=== PATIENT | female | born 1970 | race Caucasian/White ===

== ENCOUNTER 2019-07-12 00:49 | Inpatient (IN) | payer OTHER, MEDICAID ==
[~2019-07-12] VITALS: Ht 152.4 cm; Wt 72.6 kg
[2019-07-12 00:55] VITALS: BP_SYST 120
--- NOTE | 2019-07-12 00:58 | NUR ---
Placed in room 2 . Placed on supervisor particleboard, blood pressure machine and pulse oximeter. To gown for exam. Side rails up. Report given to Yanelis GARCIA.
--- NOTE | 2019-07-12 01:02 | NUR ---
Patient brought BLS from [facility], Patient of Dr. Barron for evaluation of hypotension and fever. Patient is hypertensive in ED at 156/89 and tachycardic at 119. Patient arrives with Gtube, Trach and PICC line to the Right AC. Patient is non verbal AAO x1. No other complaints/injuries per patient or as noted. Will continue to monitor
[2019-07-12] MEDS ORDERED: ASCO500T20 GT (01:12)
[2019-07-12] MEDS ORDERED: [UNRECOGNIZED DRUG - OTHER] GT (01:12)
[2019-07-12] MEDS ORDERED: DOCU-144 GT (01:12)
[2019-07-12] MEDS ORDERED: ACET-2165 GT (01:12)
[2019-07-12] MEDS ORDERED: LANS30CA53 GT (01:12)
[2019-07-12] MEDS ORDERED: BISA10SU61 RC (01:12)
[2019-07-12] MEDS ORDERED: ZOLP5TAB2 GT (01:12)
[2019-07-12] MEDS ORDERED: AMLO2.5T2 GT (01:14)
[2019-07-12] MEDS ORDERED: NS 500 ML IV ONE (01:15)
--- NOTE | 2019-07-12 01:15 | NUR ---
Medication reconciliation completed with information provided by Ashli Juarez. Any prior medication reconciliation on file was reviewed and corrected.
--- NOTE | 2019-07-12 01:30 | NUR ---
Phleb at bedside for blood draw
--- NOTE | 2019-07-12 01:59 | NUR ---
Radiology at bedside for chest xray
--- NOTE | 2019-07-12 02:01 | NUR ---
Verbal order received from Dr. Sherwood to use PICC line. PICC line dressing changed using sterile technique. Patient tolerated well.
--- NOTE | 2019-07-12 02:14 | NUR ---
Patient's code status is full code paperwork completed and placed in chart.
[2019-07-12 02:25] LABS: CALCIUM 9.2 mg/dL (8.4-11.0); CREATININE 0.72 mg/dL (0.55-1.30); POTASSIUM 4.4 mmol/L (3.5-5.1)
[2019-07-12 02:28] LABS: BASOPHILS # (AUTO) 0.1 K/uL (0.0-0.2); BASOPHILS % (AUTO) 0.6 % (0.0-2.0); EOSINOPHILS # (AUTO) 0.1 K/uL (0.0-0.4); EOSINOPHILS % (AUTO) 0.7 % (0.0-4.0); HEMATOCRIT 32.3 % (36-48); HEMOGLOBIN 10.4 g/dL (12.0-16.0); LYMPHOCYTES # (AUTO) 2.8 K/uL (1.0-5.5); LYMPHOCYTES % (AUTO) 14.7 % (20.5-51.5); MEAN CORPUSCULAR HEMOGLOBIN 31 pg (27-31); MEAN CORPUSCULAR HGB CONC 32 % (32-36); MEAN CORPUSCULAR VOLUME 96 fL (79.0-98.0); MONOCYTES # (AUTO) 2.1 K/uL (0.0-1.0); MONOCYTES % (AUTO) 10.9 % (1.7-9.3); NEUTROPHILS # (AUTO) 13.8 K/uL (1.8-7.7); NEUTROPHILS % (AUTO) 73.1 % (40.0-70.0); PLATELET COUNT (AUTO) 372 K/uL (130-430); RED BLOOD CELL COUNT(AUTO) 3.38 MIL/uL (4.2-6.2); RED CELL DISTRIBUTION WIDTH 16.4 % (9.0-15.0); WHITE BLOOD COUNT (AUTO) 18.8 K/uL (4.8-10.8)
[2019-07-12 02:29] LABS: ALBUMIN 2.5 g/dL (3.4-4.8); TOTAL BILIRUBIN 0.2 mg/dL (0.0-1.0)
[2019-07-12 02:31] LABS: INR 0.9 (0.8-1.2); PROTHROMBIN TIME 9.3 SECS (9.5-12.5)
--- NOTE | 2019-07-12 02:40 | NUR ---
# 16 FR Quintana catheter with use of sterile technique. Immediate return of 50 cc cloudy yellow urine noted. Bedside drainage bag placed below level of bladder. Urine sample collected and sent to lab. Pt tolerated procedure well Patient arrived with quintana in place, changed due to standard of practice prior to admission. Patient unable to toilet self.
[2019-07-12] MEDS ORDERED: LEVOFLOXACIN 500 MG/D5W 100 ML IV ONE (03:00)
[2019-07-12] MEDS ORDERED: NACL 0.9% 2,000 ML IV ONE (03:00)
--- NOTE | 2019-07-12 03:09 | NUR ---
Report given to RADHA Vale for continuation of care.
[2019-07-12 04:34] LABS: BILIRUBIN,URINE NEGATIVE (NEGATIVE); BLOOD, URINE 3+ (NEGATIVE); CLARITY/URINE TURBID (CLEAR); COLOR,URINE YELLOW (YELLOW); GLUCOSE,URINE NEGATIVE (NEGATIVE); KETONES,URINE TRACE (NEGATIVE); LEUKOCYTE ESTERASE ,URINE 2+ (NEGATIVE); NITRITE, URINE NEGATIVE (NEGATIVE); PH,URINE 6.5 (5.0-8.0); PROTEIN URINE 2+ (NEGATIVE); UROBILINOGEN,URINE 0.2 (0.2-1.0)
[2019-07-12 05:09] LABS: BACTERIA,URINE MODERATE /HPF (None Seen); RBC,URINE 50-80 /HPF (0-3); WBC,URINE 20-50 /HPF (0-3)
[2019-07-12] MEDS ORDERED: 0.45% NS 250 ML IV ONE (05:15)
--- NOTE | 2019-07-12 08:10 | NUR ---
WOUND open skin at paul buttocks with purple color around noted.
--- NOTE | 2019-07-12 08:20 | NUR ---
Patient will be admitted to care of Dr Barron. Admitted to telemetry unit. Will go to room 124a. Belongings list completed. Complete and up to date summary report printed. SBAR report to be given at bedside with opportunity for questions. bedside report given to Hayley Cabezas. patient stable condition. Addendum: 07/12/19 at 0907 by SDNURMG right time 0850.
--- NOTE | 2019-07-12 08:38 | NUR ---
ADMIT NOTE Received pt from ER to the floor with a diagnosis of sepsis uti. Admission process initiated. patient oriented to pain management, safety and call light-teach back done.
[2019-07-12 08:40] VITALS: BP_SYST 146
[2019-07-12 08:55] LABS: BASOPHILS # (AUTO) 0.1 K/uL (0.0-0.2); BASOPHILS % (AUTO) 0.7 % (0.0-2.0); EOSINOPHILS # (AUTO) 0.1 K/uL (0.0-0.4); EOSINOPHILS % (AUTO) 0.8 % (0.0-4.0); HEMATOCRIT 30.5 % (36-48); HEMOGLOBIN 9.8 g/dL (12.0-16.0); LYMPHOCYTES # (AUTO) 2.6 K/uL (1.0-5.5); LYMPHOCYTES % (AUTO) 14.6 % (20.5-51.5); MEAN CORPUSCULAR HEMOGLOBIN 31 pg (27-31); MEAN CORPUSCULAR HGB CONC 32 % (32-36); MEAN CORPUSCULAR VOLUME 96 fL (79.0-98.0); MONOCYTES # (AUTO) 1.8 K/uL (0.0-1.0); PLATELET COUNT (AUTO) 354 K/uL (130-430); RED BLOOD CELL COUNT(AUTO) 3.17 MIL/uL (4.2-6.2); RED CELL DISTRIBUTION WIDTH 16.9 % (9.0-15.0); WHITE BLOOD COUNT (AUTO) 17.6 K/uL (4.8-10.8)
--- NOTE | 2019-07-12 08:57 | NUR ---
ID consult called: for Kalyan Arteaga, regarding sepsis/uti, ordered by Dr. Barron, spoke with Yvonne. face sheet faxed to office at [phone]
[2019-07-12 08:58] LABS: CALCIUM 8.9 mg/dL (8.4-11.0); CREATININE 0.68 mg/dL (0.55-1.30); POTASSIUM 4.7 mmol/L (3.5-5.1)
[2019-07-12] MEDS: LEVOFLOXACIN 500 MG/D5W 100 ML IV SCH (09:09)
--- NOTE | 2019-07-12 09:20 | NUR ---
Pulmo consult: Dr. Duncan on unit and aware of consult.
[2019-07-12 11:04] LABS: NEUTROPHILS % (AUTO) 73.9 % (40.0-70.0)
--- NOTE | 2019-07-12 12:10 | NUR ---
PCP CALL: Paged Dr. Barron thru his office number to verify Admission order.
[2019-07-12 12:34] VITALS: BP_SYST 105
[2019-07-12] MEDS ORDERED: ZOLPIDEM TARTRATE 5 MG TABLET GT PRN (14:00)
[2019-07-12] MEDS ORDERED: BISACODYL 10 MG/SUPPOSITORY RC PRN (14:00)
[2019-07-12] MEDS ORDERED: ACETAMINOPHEN 650 MG/20.3 ML UDC GT PRN (14:00)
--- NOTE | 2019-07-12 14:00 | NUR ---
MD rounds: Seen by Dr. Barron, orders noted.
[2019-07-12] MEDS ORDERED: IPRATROPIUM/ALBUTEROL SULFATE 3 ML AMPUL.NEB (DUONEB) INH PRN (14:45)
--- NOTE | 2019-07-12 14:50 | NUR ---
GI consult called: for Dr. Atkins, regarding gt leaking, ordered by Dr. Barron, spoke with Kaylynn.
[2019-07-12] MEDS: NACL 0.9% 1,000 ML IV SCH (15:21)
[2019-07-12 16:13] VITALS: BP_SYST 110
[2019-07-12] MEDS: IPRATROPIUM/ALBUTEROL SULFATE 3 ML AMPUL.NEB (DUONEB) INH SCH ×3 (16:13→23:20)
--- NOTE | 2019-07-12 16:30 | NUR ---
Wound care consult: Seen by laboratory animal care veterinarian. Wound care recommendations noted.
--- NOTE | 2019-07-12 16:45 | NUR ---
WOUND EVALUATION: Wound Consult received from Dr. Barron. Thank you, Dr. Barron, for the consult. Patient received in a Packwood Bed with an IsoFlex LUISITO mattress with low air-loss therapy initiated, awake, alert, non-verbal, intellectually impaired. Patient is unable to turn in bed independently. Yifan Score is a 10. Past Medical History: Brain tumor in childhood which was removed, Craniotomy, COPD, Seizure disorder, Mental Retardation, Hypertension, GERD, Tracheostomy, G-tube. Recent Labs: WBC 17.6, RBC 3.17, hemoglobin 9.8, hematocrit 30.5, BUN 28, creatinine 0.68, GFR 99, glucose 132, albumin 2.5, PTT 21.8, PT 9.3. Microbiology: Blood culture results 2 in progress. Urine culture results in progress. Endotracheal culture sputum culture results inconclusive (possible contamination with saliva). Intrinsic factors that delay wound healing: COPD, Hypoalbuminemia. Extrinsic factors that delay wound healing: Immobility. Wound Assessment: 1. Right Sacral area: Unstageable pressure ulcer, present on admission. Wound bed has 75% yellow slough, 50% black tissue, 10% pink tissue. No odor, no drainage. Periwound intact. Wound measures 2.7 cm x 1.2 cm. 2. Left Sacral area: Wound of unknown etiology, present on admission. Wound bed has 100% pink tissue. No odor, no drainage. Periwound and surrounding tissue has purple discoloration. Site measures 0.2 cm x 0.4 cm. Recommend: Cleanse wounds with normal saline. Apply moisture barrier cream to david-wounds. Cover with Sacral foam dressing. Perform wound care daily, and as needed for dressing soiling or dislodgement. 3. Left Upper Pelvic area: Scab, present on admission. Wound bed has 100% brown scab. No odor, no drainage. Periwound intact. Scab measures 1.5 cm x 1.5 cm. Recommend: Cleanse site with normal saline. Pat dry. Apply moisture barrier cream to site. Perform wound care daily, and as needed for dressing soiling or dislodgement. Also recommend: Reposition patient side to side only every 2 hours with pillow support and off-load pressure areas with pillows for pressure re-distribution. Offload, elevate and float bilateral heels with one pillow lengthwise under each extremity at all times. Perform skin care and monitor skin integrity Q shift. Use moisture barrier cream on buttocks and other moisture susceptible areas QID and as needed for soiling. Maintain patient on low air-loss therapy. Addendum: 07/12/19 at 1849 by Brando Martin RN Addendum: Treatment for wounds 1 and 2 should have Venelex ointment applied daily.
--- NOTE | 2019-07-12 19:26 | NUR ---
End of shift: Needs attended. No change in assessment.
[2019-07-12 20:00] VITALS: BP_SYST 119
--- NOTE | 2019-07-12 20:00 | NUR ---
ASSUMED CARE. RECEIVED AWAKE, LETHARGIC. AFEBRILE, NOT IN ACUTE DISTRESS. NO PAIN OR DISCOMFORT NOTED. WITH IV FLUID NS INFUSING AT 50 ML/HR VIA RIGHT UPPER ARM PICC LINE. UHW5=856% ON 3 LPM HUMIDIFIED O2 VIA T-BAR. WHITTEN CATHETER DRAINING CLEAR YELLOW URINE. G-TUBE CLAMPED. NO FEEDING ORDERED AT THIS TIME. SINUS TACHYCARDIA AT LOW 100'S ON THE MONITOR. VS ARE OTHERWISE STABLE, WILL CONTINUE TO MONITOR. NEEDS ATTENDED.
--- NOTE | 2019-07-12 21:00 | NUR ---
NO DUE MEDICATIONS AT THIS TIME.
--- NOTE | 2019-07-13 | NUR ---
ASLEEP, NOT IN ANY KIND OF DISTRESS. NO PAIN OR DISCOMFORT NOTED. SIDE RAILS UP, CALL LIGHT WITHIN REACH. KEPT WARM AND COMFORTABLE. VS REMAIN STABLE.
[2019-07-13 00:59] VITALS: BP_SYST 122
[2019-07-13] MEDS: IPRATROPIUM/ALBUTEROL SULFATE 3 ML AMPUL.NEB (DUONEB) INH SCH ×6 (03:57→23:51)
--- NOTE | 2019-07-13 04:00 | NUR ---
AWAKE, NO SIGNIFICANT CHANGE PT. REMAIN STABLE AND PAIN FREE. WILL CONTINUE TO MONITOR.
[2019-07-13 06:48] LABS: CALCIUM 8.1 mg/dL (8.4-11.0); CREATININE 0.6 mg/dL (0.55-1.30); POTASSIUM 4.2 mmol/L (3.5-5.1)
[2019-07-13 06:55] LABS: BASOPHILS # (AUTO) 0.1 K/uL (0.0-0.2); BASOPHILS % (AUTO) 0.6 % (0.0-2.0); EOSINOPHILS # (AUTO) 0.2 K/uL (0.0-0.4); EOSINOPHILS % (AUTO) 1.6 % (0.0-4.0); HEMATOCRIT 27.7 % (36-48); HEMOGLOBIN 9.2 g/dL (12.0-16.0); LYMPHOCYTES # (AUTO) 2.4 K/uL (1.0-5.5); LYMPHOCYTES % (AUTO) 24.1 % (20.5-51.5); MEAN CORPUSCULAR HEMOGLOBIN 32 pg (27-31); MEAN CORPUSCULAR HGB CONC 33 % (32-36); MEAN CORPUSCULAR VOLUME 96 fL (79.0-98.0); MONOCYTES # (AUTO) 1.2 K/uL (0.0-1.0); MONOCYTES % (AUTO) 11.9 % (1.7-9.3); NEUTROPHILS # (AUTO) 6.2 K/uL (1.8-7.7); NEUTROPHILS % (AUTO) 61.8 % (40.0-70.0); PLATELET COUNT (AUTO) 317 K/uL (130-430); RED BLOOD CELL COUNT(AUTO) 2.89 MIL/uL (4.2-6.2); RED CELL DISTRIBUTION WIDTH 16.8 % (9.0-15.0)
--- NOTE | 2019-07-13 07:25 | NUR ---
ENDORSED CARE TO GUADALUPE HAWKINS
--- NOTE | 2019-07-13 07:30 | NUR ---
Opening note Patient resting in bed at this time, A/Ox1, awake, nonverbal. no complaints of pain. PICC line patent, intact, and infusing fluids as ordered. no adverse side effects noted. GT feeding clamped S/T leakage. Bach catheter in place draining yellow urine to gravity. On safety and aspiration precautions, HOB kept elevated, 3 side rails up, call light within reach. patient in stable condition. Will continue to monitor.
[2019-07-13 08:00] VITALS: BP_SYST 134
[2019-07-13] MEDS: LEVOFLOXACIN 500 MG/D5W 100 ML IV SCH (08:44)
[2019-07-13] MEDS: NACL 0.9% 1,000 ML IV SCH (08:48)
[2019-07-13] MEDS: ASCORBIC ACID 500 MG TABLET GT SCH (09:00)
[2019-07-13] MEDS: DOCUSATE SODIUM 100 MG CAPSULE PO SCH ×2 (09:00→20:22)
[2019-07-13] MEDS: BALSAM PERU/CASTOR OIL 60 GM OINT...G. TP SCH (09:00)
[2019-07-13] MEDS: LANSOPRAZOLE 30 MG CAPSULE.DR GT SCH (09:00)
[2019-07-13] MEDS: amLODIPine BESYLATE 5 MG TABLET GT SCH (09:00)
--- NOTE | 2019-07-13 09:00 | NUR ---
GT insertion GT inserted by Dr. Badillo at bedside. GT dressing applied. patient okay to use GT for medication and feeding once GT placement is confirmed.
--- NOTE | 2019-07-13 09:30 | NUR ---
Unable to give morning medications Awaiting KUB result. To not use GTube per MD until placement is confirmed.
--- NOTE | 2019-07-13 10:28 | NUR ---
Nutrition Update Yifan Scale 9 noted. Pt admitted for sepsis, UTI. Diet: N/A BMI: 31.2 kg/m2 RD to follow per nutrition care standards.
--- NOTE | 2019-07-13 10:51 | NUR ---
Wound care Wound care dome as ordered. no adverse side effects noted.
[2019-07-13] MEDS ORDERED: GASTROGRAFIN 120 ML ONE (11:11)
--- NOTE | 2019-07-13 11:22 | NUR ---
Dietitian Recommendations * Recommend Pivot 1.5 at 10 ml/hr today (07/13/19), and advance to goal rate of 45 ml/hr tomorrow (07/14/19) if pt is tolerating TF well via GT * Raman BID * Free Water Flush: 200 ml Q6h Provides: 1780 kcal/day, 106 gm protein/day, and 1620 ml free water/day Meets; 98% of upper end of estimated protein needs and 102% of upper end of estimated protein needs LP, RD Please refer to Nutrition Assessment for details. Addendum: 07/13/19 at [address] Amended: Links added.
--- NOTE | 2019-07-13 12:30 | NUR ---
bowel movement Patient noted with bowel movement, skin care provided. Linens changed. No other needs at this time.
[2019-07-13 12:40] VITALS: BP_SYST 106
--- NOTE | 2019-07-13 14:28 | NUR ---
Gt feeding GT placement confirmed with xray. GT in place, patent, and intact. GT feeding started at 10cc/hour as ordered. Tolerating well. No nausea, no vomiting.
[2019-07-13 16:26] VITALS: BP_SYST 110
--- NOTE | 2019-07-13 16:28 | NUR ---
rounds Oral care provided, trach suctioned. Skin care provided. no other needs at this time.
--- NOTE | 2019-07-13 17:52 | NUR ---
rounds oral care provided. GT flushed as ordered. No other needs at this time.
--- NOTE | 2019-07-13 18:32 | NUR ---
closing note Patient resting in bed at this time, A/Ox1, awake, nonverbal. no complaints of pain. PICC line patent, intact, and infusing fluids as ordered. no adverse side effects noted. Gt feeding in place, patent, and intact. GT feeding tolerating well. No residual. no nausea, no vomiting. Bach catheter in place draining yellow urine to gravity. On safety and aspiration precautions, HOB kept elevated, 3 side rails up, call light within reach. patient in stable condition. All needs met.
--- NOTE | 2019-07-13 19:15 | NUR ---
OPENING NOTES Late entry due to patient care. Bedside report received from dayshift nurse. Patient received lying in bed. No s/s of acute distress noted. Breathing even and unlabored. HOB raised, trach to tbar on 3L of oxygen. Bach attached, secured, and draining by gravity. Bed alarm on. Bed is locked and at lowest position. Will continue to monitor.
[2019-07-13 20:00] VITALS: BP_SYST 123
--- NOTE | 2019-07-13 23:00 | NUR ---
INCONTINENT CARE Incontinent care done by RN at this time. Loose brown stool noted. All needs met. Will continue to monitor.
[2019-07-14] VITALS: BP_SYST 118
--- NOTE | 2019-07-14 04:00 | NUR ---
INCONTINENT CARE Incontinent care done at this time by RN. Loose brown stool noted. All needs met. Bed alarm on. Will continue to monitor.
[2019-07-14] MEDS: IPRATROPIUM/ALBUTEROL SULFATE 3 ML AMPUL.NEB (DUONEB) INH SCH ×6 (04:06→23:24)
[2019-07-14] MEDS: NACL 0.9% 1,000 ML IV SCH ×2 (04:17→21:23)
[2019-07-14 06:26] LABS: BASOPHILS # (AUTO) 0.1 K/uL (0.0-0.2); BASOPHILS % (AUTO) 0.6 % (0.0-2.0); EOSINOPHILS # (AUTO) 0.1 K/uL (0.0-0.4); EOSINOPHILS % (AUTO) 1.6 % (0.0-4.0); HEMOGLOBIN 8.8 g/dL (12.0-16.0); LYMPHOCYTES # (AUTO) 2.7 K/uL (1.0-5.5); LYMPHOCYTES % (AUTO) 29.5 % (20.5-51.5); MEAN CORPUSCULAR HEMOGLOBIN 32 pg (27-31); MEAN CORPUSCULAR HGB CONC 33 % (32-36); MEAN CORPUSCULAR VOLUME 96 fL (79.0-98.0); MONOCYTES # (AUTO) 1.3 K/uL (0.0-1.0); MONOCYTES % (AUTO) 14.4 % (1.7-9.3); NEUTROPHILS # (AUTO) 4.9 K/uL (1.8-7.7); NEUTROPHILS % (AUTO) 53.9 % (40.0-70.0); PLATELET COUNT (AUTO) 367 K/uL (130-430); RED BLOOD CELL COUNT(AUTO) 2.81 MIL/uL (4.2-6.2); WHITE BLOOD COUNT (AUTO) 9.1 K/uL (4.8-10.8)
--- NOTE | 2019-07-14 06:40 | NUR ---
CLOSING NOTES Patient in bed, eyes closed, sleeping comfortably. No s/s of acute distress noted. Breathing even and unlabored. HOB raised, trach to tbar attached, on 3L of oxygen. Bach attached, secured, and draining by gravity. Seizure pads attached to side rails. All needs met throughout shift. Fall and safety precautions maintained throughout shift. Will continue to monitor until patient care is endorsed to oncoming dayshift nurse.
[2019-07-14 07:32] LABS: CALCIUM 8.7 mg/dL (8.4-11.0); CREATININE 0.61 mg/dL (0.55-1.30); POTASSIUM 4.3 mmol/L (3.5-5.1)
--- NOTE | 2019-07-14 07:35 | NUR ---
Opening note Patient resting in bed at this time, A/Ox1, awake, nonverbal. no complaints of pain. PICC line patent, intact, and infusing fluids as ordered. no adverse side effects noted. GT feeding in place, patent, and intact. GT feeding tolerating well. No residual noted. Bach catheter in place draining yellow urine to gravity. On safety and aspiration precautions, HOB kept elevated, 3 side rails up, call light within reach. patient in stable condition. Will continue to monitor.
[2019-07-14 08:00] VITALS: BP_SYST 129
[2019-07-14] MEDS: LANSOPRAZOLE 30 MG CAPSULE.DR GT SCH (08:39)
[2019-07-14] MEDS: ASCORBIC ACID 500 MG TABLET GT SCH (08:40)
[2019-07-14] MEDS: LEVOFLOXACIN 500 MG/D5W 100 ML IV SCH (08:40)
[2019-07-14] MEDS: amLODIPine BESYLATE 5 MG TABLET GT SCH (08:40)
[2019-07-14] MEDS: BALSAM PERU/CASTOR OIL 60 GM OINT...G. TP SCH (08:40)
[2019-07-14] MEDS: DOCUSATE SODIUM 100 MG CAPSULE PO SCH ×2 (08:40→21:00)
--- NOTE | 2019-07-14 09:30 | NUR ---
medications All morning medications given as ordered. No adverse side effects noted. GT feeding tolerated well. No nausea, no vomiting noted. No residual noted.
--- NOTE | 2019-07-14 11:30 | NUR ---
oral care Oral care provided. Skin care provided. GTube flushed as ordered. No adverse side effects noted.
[2019-07-14 12:01] VITALS: BP_SYST 146
--- NOTE | 2019-07-14 13:30 | NUR ---
Dr. Badillo rounds GT feeding increased to 20cc/ hr. stated to follow dietary recommendations. GT feeding increased. tolerating well. No adverse side effects noted.
--- NOTE | 2019-07-14 15:50 | NUR ---
Wound care Wound care done as ordered. no adverse side effects. Skin care provided, linens changed. Patient turned and repositioned. No other needs at this time.
[2019-07-14 17:09] VITALS: BP_SYST 150
--- NOTE | 2019-07-14 17:15 | NUR ---
Gt dressing GT dressing changed, new dressing applied. GT site dry and intact. No other need at this time.
--- NOTE | 2019-07-14 18:08 | NUR ---
closing note Patient resting in bed at this time, A/Ox1, awake, nonverbal. no signs of pain. PICC line patent, intact, and infusing fluids as ordered. no adverse side effects noted. PICC line dressing changed. GT feeding in place, patent, and intact. GT feeding tolerating well. No residual noted. Bach catheter in place draining yellow urine to gravity. On seizure, safety and aspiration precautions, padded side rails in place, HOB kept elevated, 3 side rails up, call light within reach. patient in stable condition. all needs met.
--- NOTE | 2019-07-14 18:34 | NUR ---
critical lab Patient microbiology showed E coli, ESBL of urine. No report called in from lab, noticed result upon reviewing chart at this time. Called MD, new orders received.
--- NOTE | 2019-07-14 19:10 | NUR ---
OPENING NOTE Late entry due to patient care. Bedside report received from daysprft nurse. Patient received lying in bed, sleeping. No s/s of acute distress noted. Breathing is even and unlabored. HOB raised. IVF and Gtube infusing well. Trach to Tbar, on 3L of oxygen. Seizure pads attached to side rails. Bach attached, secured and draining by gravity. Bed alarm on. Bed is locked and at lowest position. Will continue to monitor.
[2019-07-14 20:00] VITALS: BP_SYST 142
[2019-07-14] MEDS ORDERED: MEROPENEM 500 MG VIAL IV ONE (21:12)
[2019-07-14] MEDS: MEROPENEM 500 MG in NS 50 ML IV SCH (21:18)
--- NOTE | 2019-07-14 22:00 | NUR ---
ROUNDS Patient in bed, sleeping comfortably. All needs met at this time. Will continue to monitor.
--- NOTE | 2019-07-15 01:00 | NUR ---
PERICARE Pericare rendered by RN and WARP PICKER. Patient tolerated well. Bed alarm on. Will continue to monitor.
[2019-07-15 01:24] VITALS: BP_SYST 132
[2019-07-15] MEDS: IPRATROPIUM/ALBUTEROL SULFATE 3 ML AMPUL.NEB (DUONEB) INH SCH ×6 (03:09→23:22)
--- NOTE | 2019-07-15 04:00 | NUR ---
ROUNDS Patient in bed asleep at this time. No signs of discomfort noted. Chest rise and fall even bilaterally. IVF and Gtube infusing well. Bed alarm on. Will continue to monitor.
[2019-07-15] MEDS: MEROPENEM 500 MG in NS 50 ML IV SCH ×3 (05:13→22:31)
--- NOTE | 2019-07-15 06:25 | NUR ---
CLOSING NOTES Patient in bed, eyes closed, sleeping. No s/s of acute distress noted. Breathing even and unlabored, HOB raised, trach to tbar on 3L of oxygen. Gtube and IVF infusing well. IV site patent, no signs of infiltration or infection noted. Bach attached, secured and draining by gravity. Seizure pads attached to side rails. All needs met throughout shift. Fall, safety, isolation precautions maintained throughout shift. Will continue to monitor until patient care is endorsed to oncoming dayshift nurse.
[2019-07-15 07:15] VITALS: BP_SYST 164
--- NOTE | 2019-07-15 07:26 | NUR ---
OPENING NOTES RECEIVED PT AWAKE. NO SIGNS OF DISTRESS NOTED. NO SOB. NONVERBAL. MIDLINE PATENT AND INTACT. FLUIDS INFUSING ORDERED. TOLERATING WELL. G-TUBE IN PLACE, INTACT, AND PATENT. SEEN BY DR. MARIN AT BEDSIDE. HELD FEEDING DUE TO RESIDUAL >100ML. MD AWARE. WHITTEN CATHETER INTACT AND PATENT, DRAINING YELLOW URINE. FALL AND ASPIRATION PRECAUTIONS NOTED. HOB ELEVATED. CALL LIGHT IN REACH. CONTINUE FREQUENT. VISUAL CHECKS. WILL CONTINUE TO MONITOR.
[2019-07-15] MEDS: amLODIPine BESYLATE 5 MG TABLET GT SCH (09:15)
[2019-07-15] MEDS: DOCUSATE SODIUM 100 MG CAPSULE PO SCH ×2 (09:15→22:30)
[2019-07-15] MEDS: ASCORBIC ACID 500 MG TABLET GT SCH (09:15)
[2019-07-15] MEDS: LANSOPRAZOLE 30 MG CAPSULE.DR GT SCH (09:15)
--- NOTE | 2019-07-15 09:15 | NUR ---
MEDS ADMINISTERED MEDICATIONS TO PT ORDERED PER MD. TOLERATED WELL. EDUCATION GIVEN. NO ACUTE DISTRESS NOTED. HOB ELEVATED. CALL LIGHT IN REACH. FALL AND ASPIRATION PRECAUTIONS NOTED. CONTINUE TO MONITOR.
[2019-07-15] MEDS: BALSAM PERU/CASTOR OIL 60 GM OINT...G. TP SCH (09:16)
--- NOTE | 2019-07-15 11:15 | NUR ---
WOUND CARE PERFORMED WOUND CARE ON PATIENT. INCONTINENT CARE PROVIDED. TOLERATED WELL. NO ACUTE DISTRESS NOTED. HOB ELEVATED. CALL LIGHT IN REACH. FALL AND ASPIRATION PRECAUTIONS IN PLACE. CONTINUE TO MONITOR.
[2019-07-15 12:00] VITALS: BP_SYST 150
--- NOTE | 2019-07-15 13:15 | NUR ---
ROUNDS PT RESTING IN BED. CHEST RISE AND FALL NOTED. NO ACUTE DISTRESS NOTED. ALL NEEDS MET. CALL LIGHT IN REACH. FALL AND ASPIRATION PRECAUTIONS IN PLACE. CONTINUE TO MONITOR.
[2019-07-15 14:49] VITALS: BP_SYST 164
--- NOTE | 2019-07-15 15:15 | NUR ---
ROUNDS PATIENT AWAKE IN BED. NO ACUTE DISTRESS NOTED. CALL LIGHT IN REACH. BED ALARM ON. FALL AND ASPIRATION PRECAUTIONS IN PLACE. HOB ELEVATED. ALL NEEDS MET. CONTINUE TO MONITOR.
--- NOTE | 2019-07-15 16:02 | NUR ---
DC PLANNING: CLINICALS HAS BEEN FAXED TO [facility]) @ [facility]
[2019-07-15 17:03] VITALS: BP_SYST 158
--- NOTE | 2019-07-15 17:15 | NUR ---
ROUNDS PT RESTING IN BED. CHEST RISE AND FALL NOTED. NO ACUTE DISTRESS NOTED. CALL LIGHT IN REACH. ALL NEEDS MET. FALL AND ASPIRATION PRECAUTIONS IN PLACE. CONTINUE TO MONITOR.
--- NOTE | 2019-07-15 18:45 | NUR ---
CLOSING NOTE PATIENT IN BED RESTING. CHEST RISE AND FALL NOTED. NO SIGNS OF ACUTE DISTRESS NOTED. TRACH TO TBAR ON 3L OF OXYGEN. BREATHING EVEN AND UNLABORED. HOB ELEVATED. G-TUBE INTACT AND PATENT. TOLERATING FEEDING WELL. IV INTACT AND PATENT. NO SIGNS OF INFILTRATION. WHITTEN CATHETER INTACT AND DRAINING YELLOW URINE. ALL NEEDS MET. FALL AND ASPIRATION PRECAUTIONS NOTED. CALL LIGHT IN REACH. WILL ENDORSE TO NOC NURSE.
--- NOTE | 2019-07-15 19:47 | NUR ---
Pt is lying in bed awake and non-verbal. Tracheostomy is in place and connected to oxygen at 2L/min via T Piece. No respiratory distress noted. G tube feeding of Pivot 1.5 is infusing well at 45ml/hr and no leakage noted. IVF of NS is infusing well via JOSE ANGEL Midline at 50ml/hr and Midline dressing is dry and intact. Bach cath to gravity drainage noted with yellowish urine. Fall, safety and seizure precautions are in place.
[2019-07-15 20:00] VITALS: BP_SYST 144
--- NOTE | 2019-07-15 22:00 | NUR ---
No distress noted at this time. GTF and IVF are infusing well. Fall, seizure and safety precautions are in place.
--- NOTE | 2019-07-16 | NUR ---
IVF and GTF are infusing well. Fall, seizure and safety precautions are in place.
[2019-07-16] MEDS: NACL 0.9% 1,000 ML IV SCH ×2 (00:07→18:19)
--- NOTE | 2019-07-16 02:00 | NUR ---
Pt is resting quietly in bed. No respiratory distress or seizure activity noted. IVF and GTF are infusing well. Fall, seizure and safety precautions are in place.
--- NOTE | 2019-07-16 03:05 | NUR ---
Nursing care of pt endorsed to Nurse Mik Sanchez
--- NOTE | 2019-07-16 03:55 | NUR ---
TURNING & REPOSITION OFF LOADING WITH PILLOWS COMFORT MEASURES IMPLEMENTED HOB KEPT ELEVATED FREQUENT EYE OPENING IS NOTED CHEST MOVEMENT SYMMETRICAL ALSO UNLABORED ASSIST NEEDED /.
[2019-07-16] MEDS: IPRATROPIUM/ALBUTEROL SULFATE 3 ML AMPUL.NEB (DUONEB) INH SCH ×4 (04:28→16:12)
[2019-07-16 06:05] VITALS: BP_SYST 148
[2019-07-16] MEDS: MEROPENEM 500 MG in NS 50 ML IV SCH ×2 (06:48→14:24)
--- NOTE | 2019-07-16 07:15 | NUR ---
PATIENT RESTING IN BED. CHEST RISE AND FALL NOTED. NO ACUTE DISTRESS NOTED. UNLABORED BREATHING. G-TUBE INTACT AND PATENT, RUNNING FEEDING. TOLERATING WELL. IV INTACT AND PATENT. FLUIDS RUNNING. TOLERATING WELL. NO SIGNS OF INFILTRATION. BED ALARM ON. ALL NEEDS MET. CALL LIGHT IN REACH. BED IN LOWEST AND LOCKED POSITION. FALL AND ASPIRATION PRECAUTIONS IN PLACE. CONTINUE TO MONITOR.
[2019-07-16] MEDS: amLODIPine BESYLATE 5 MG TABLET GT SCH (08:22)
[2019-07-16] MEDS: LANSOPRAZOLE 30 MG CAPSULE.DR GT SCH (08:23)
[2019-07-16] MEDS: ASCORBIC ACID 500 MG TABLET GT SCH (08:23)
[2019-07-16] MEDS: DOCUSATE SODIUM 100 MG CAPSULE PO SCH (08:23)
--- NOTE | 2019-07-16 08:23 | NUR ---
MEDS MEDICATIONS ADMINISTERED ORDERED PER MD. TOLERATED WELL. NO ACUTE DISTRESS NOTED. UNLABORED BREATHING. ALL NEEDS MET. CALL LIGHT IN REACH. CONTINUE TO MONITOR.
[2019-07-16] MEDS: BALSAM PERU/CASTOR OIL 60 GM OINT...G. TP SCH (08:24)
--- NOTE | 2019-07-16 10:00 | NUR ---
ROUNDS PT AWAKE IN BED. NO ACUTE DISTRESS NOTED. CALL LIGHT IN REACH. ALL NEEDS MET. FALL AND ASPIRATION PRECAUTIONS IN PLACE. HOB ELEVATED. CONTINUE TO MONITOR.
--- NOTE | 2019-07-16 10:53 | NUR ---
DC PLANNING: MADHURI SPOKE WITH FLORENCIO ( CLINICAL LIAISON AT [facility] ) @ PATIENT IS ACCEPTED AT [place], [place]. MADHURI SPOKE WITH PATIENT'S MOTHER (RADHA) @ AND INFORMED HER OF THE DC PLAN TO [facility]. PATIENT'S MOTHER AGREED TO THE DC PLAN TO [facility]. Addendum: 07/16/19 at 0212 by Viktoria Hagan RN RECEIVED CALL FROM FLORENCIO, PATIENT WILL BE GOING TO ROOM 208-A AT [facility] AFTER 7PM. CALL FOR REPORT P Addendum: 07/16/19 at 1216 by Viktoria Hagan RN TRANSPORTATION HAS BEEN SETUP WITH [facility] (WITH VENT CERTIFIED RN). RADIOLOGY SUPERVISOR TIME IS AT 8PM. CM CONTACTED PATIENT'S MOTHER (RADHA) AND INFORMED OF THE DC TONIGHT AT 8PM. PATIENT'S MOTHER AGREED TO THE DISCHARGE TO [facility]. Addendum: 07/16/19 at 1221 by Viktoria Hagan RN SPOKE WITH SIMIN HerreraDISPTACH) @ [facility] FOR TRANSPORTATION SETUP
--- NOTE | 2019-07-16 11:00 | NUR ---
note ASSISTED COMMERCIAL [employer]EN RET[employer]OFIT ARCHITECT WITH INCONTINENCE CARE, STEPHAN WELL. REPOSITIONED WITH PILLOWS FOR COMFORT. HOB UP. ALL NEEDS ANTICIPATED AND MET. CONT TO MONITOR. CALL LIGHT IN REACH
[2019-07-16 12:30] VITALS: BP_SYST 157
--- NOTE | 2019-07-16 13:00 | NUR ---
ROUNDS PT AWAKE IN BED. NO ACUTE DISTRESS NOTED. UNLABORED BREATHING. CALL LIGHT ON. FALL AND ASPIRATION PRECAUTIONS IN PLACE. HOB ELEVATED. ALL NEEDS MET. CONTINUE TO MONITOR.
--- NOTE | 2019-07-16 15:00 | NUR ---
WOUND CARE PT AWAKE IN BED. NO ACUTE DISTRESS NOTED. WOUND CARE DONE. TOLERATED WELL. ALL NEEDS MET. CALL LIGHT IN REACH. FALL AND ASPIRATION PRECAUTIONS NOTED. HOB ELEVATED. CONTINUE TO MONITOR.
[2019-07-16 15:31] VITALS: BP_SYST 130
--- NOTE | 2019-07-16 16:30 | NUR ---
PERINEAL CARE INCONTINENT CARE PROVIDED. TOLERATED WELL. NO ACUTE DISTRESS NOTED. ALL NEEDS MET. CALL LIGHT IN REACH. FALL AND ASPIRATION PRECAUTIONS IN PLACE. CONTINUE TO MONITOR.
[2019-07-16 16:42] VITALS: BP_SYST 153
--- NOTE | 2019-07-16 17:00 | NUR ---
[employer] CALLED CALLED MOTHER RADHA. RECEIVED CONSENT FOR TRANSFER TO [facility]. SECOND WITNESS
--- NOTE | 2019-07-16 17:33 | NUR ---
CALLED [facility] REPORT GIVEN TO CARLOS, HOME HEALTH REGISTERED NURSE TIME AT 1999.
--- NOTE | 2019-07-16 18:41 | NUR ---
CLOSING NOTE PATIENT RESTING IN BED. CHEST RISE AND FALL NOTED. NO ACUTE DISTRESS NOTED. HOB ELEVATED. G-TUBE INTACT AND PATENT. RUNNING FEEDING ORDERED PER MD. TOLERATING WELL. IV INTACT AND PATENT. NO SIGNS OF INFILTRATION. INFUSING FLUIDS ORDERED TOLERATING WELL. BED IN LOWEST AND LOCKED POSITION. CALL LIGHT IN REACH. ALL NEEDS MET. FALL AND ASPIRATION PRECAUTIONS IN PLACE. [facility] [place]. WILL ENDORSE TO [facility] NURSE.
--- NOTE | 2019-07-16 20:35 | NUR ---
NOTES PATIENT DISCHARGED AND TRANSFERRED TO [facility] ORDERED WITH STABLE VITAL SIGNS. ALL NEEDS ATTENDED TO.
== END 2019-07-16 20:35 | DRG 871 ==
LOC: SED 00:49 → STU 05:15
PROVIDERS: ADMIT Internal Medicine; ATTEND Internal Medicine
PROC: 0D20XUZ Change Feeding Device in Upper Intestinal Tract, External Approach (ICD-10-PCS; principal; 2019-07-13)
DX: A41.9 Sepsis, unspecified organism (principal); R40.2343 Coma scale, best motor response, flexion withdrawal, at hospital admission; E43 Unspecified severe protein-calorie malnutrition; K94.23 Gastrostomy malfunction; K31.6 Fistula of stomach and duodenum; G93.40 Encephalopathy, unspecified; N39.0 Urinary tract infection, site not specified; Z16.12 Extended spectrum beta lactamase (ESBL) resistance; E24.9 Cushing's syndrome, unspecified; J96.11 Chronic respiratory failure with hypoxia; B96.20 Unspecified Escherichia coli [E. coli] as the cause of diseases classified elsewhere; F79 Unspecified intellectual disabilities; E86.0 Dehydration; G40.909 Epilepsy, unspecified, not intractable, without status epilepticus; I10 Essential (primary) hypertension; J44.9 Chronic obstructive pulmonary disease, unspecified; K21.9 Gastro-esophageal reflux disease without esophagitis; R13.12 Dysphagia, oropharyngeal phase; Y83.8 Other surgical procedures as the cause of abnormal reaction of the patient, or of later complication, without mention of misadventure at the time of the procedure; D63.8 Anemia in other chronic diseases classified elsewhere; Z79.52 Long term (current) use of systemic steroids; Z74.01 Bed confinement status; Z68.31 Body mass index [BMI] 31.0-31.9, adult; Z79.899 Other long term (current) drug therapy; Y92.89 Other specified places as the place of occurrence of the external cause; R40.2423 Glasgow coma scale score 9-12, at hospital admission
CPT/HCPCS: 36415; 36600; 71045; 74240-TC; 80048; 80053; 81000-TC; 82803-TC; 83605; 84484; 85025; 85610-TC; 85730-TC; 87040-TC; 87081; 87086; 87186-TC; 87205-TC; 93005; 94640; 94760; 96361; 96365; 99285; G0378; J1956; J2185; J7030; J7040; J7620; Q9963

== ENCOUNTER 2021-03-26 02:10 | Inpatient (IN) | payer OTHER, MEDICAID, SELFPAY ==
[~2021-03-26] VITALS: Ht 157.5 cm; Wt 94.3 kg
[~2021-03-26 02:10] MED LIST: ACET325T GT; AMLO2.5T2 GT; ASCO500T20 GT; BISA10SU61 RC; DOCU-144 GT; LANS30CA53 GT; ZOLP5TAB2 GT; [UNRECOGNIZED DRUG - OTHER] GT
--- NOTE | 2021-03-26 02:16 | NUR ---
Placed in room 6 . Placed on yard spotter, blood pressure machine and pulse oximeter. To gown for exam. Side rails up. Report given to RADHA Quintanilla.
[2021-03-26 02:20] VITALS: BP_SYST 164
--- NOTE | 2021-03-26 02:20 | NUR ---
Patient BIB by [facility] from [facility]. C/O Redness bilateral hips R/O Cellulitis x today. Per reported, staffs found redness bilateral hips and reported Dr. Barron, Patient needed to eval.
--- NOTE | 2021-03-26 02:22 | NUR ---
COVID-19 and MRSA swabs collected and sent to lab.
[2021-03-26] MEDS ORDERED: LACO100T2 GT (02:43)
[2021-03-26] MEDS ORDERED: LANS15CA19 GT (02:43)
[2021-03-26] MEDS ORDERED: FURO-149 GT (02:43)
[2021-03-26] MEDS ORDERED: OXCA600T5 GT (02:43)
[2021-03-26] MEDS ORDERED: MOM GT (02:43)
[2021-03-26] MEDS ORDERED: VALP500S4 GT (02:43)
[2021-03-26] MEDS ORDERED: ASCO500T20 GT (02:43)
[2021-03-26] MEDS ORDERED: DOCU-144 GT (02:43)
[2021-03-26] MEDS ORDERED: LISI-209 GT (02:43)
[2021-03-26] MEDS ORDERED: LIP10 GT (02:43)
[2021-03-26] MEDS ORDERED: LEVE750T4 GT (02:43)
[2021-03-26] MEDS ORDERED: POTA20TA83 GT (02:43)
[2021-03-26] MEDS ORDERED: MULT-1117 GT (02:43)
--- NOTE | 2021-03-26 02:43 | NUR ---
Medication reconciliation completed with information provided by med list from Ashli Juarez. Any prior medication reconciliation on file was reviewed and corrected.
--- NOTE | 2021-03-26 02:55 | NUR ---
ER Dr. Lin at bedside examining patient.
[2021-03-26] MEDS ORDERED: PIPERACILLIN/TAZO 3.375 GM in NS 50 ML IV ONE (03:00)
[2021-03-26] MEDS ORDERED: VANCOMYCIN HCL 1,000 MG in NS 250 ML IV ONE (03:00)
[2021-03-26] MEDS ORDERED: IPRATROPIUM/ALBUTEROL SULFATE 3 ML AMPUL.NEB (DUONEB) INH ONE (03:00)
[2021-03-26] MEDS ORDERED: IPRATROPIUM/ALBUTEROL SULFATE 3 ML AMPUL.NEB (DUONEB) ONE (03:04)
[2021-03-26 03:14] LABS: BASOPHILS # (AUTO) 0.1 K/uL (0.0-0.2); BASOPHILS % (AUTO) 0.5 % (0.0-2.0); EOSINOPHILS % (AUTO) 0.1 % (0.0-4.0); HEMATOCRIT 34.1 % (36-48); HEMOGLOBIN 11.1 g/dL (12.0-16.0); LYMPHOCYTES # (AUTO) 2.1 K/uL (1.0-5.5); LYMPHOCYTES % (AUTO) 10.3 % (20.5-51.5); MEAN CORPUSCULAR HEMOGLOBIN 29 pg (27-31); MEAN CORPUSCULAR HGB CONC 33 % (32-36); MEAN CORPUSCULAR VOLUME 89 fL (79.0-98.0); MONOCYTES # (AUTO) 0.6 K/uL (0.0-1.0); MONOCYTES % (AUTO) 2.7 % (1.7-9.3); NEUTROPHILS # (AUTO) 17.9 K/uL (1.8-7.7); NEUTROPHILS % (AUTO) 86.4 % (40.0-70.0); PLATELET COUNT (AUTO) 323 K/uL (130-430); RED BLOOD CELL COUNT(AUTO) 3.84 MIL/uL (4.2-6.2); RED CELL DISTRIBUTION WIDTH 16.3 % (9.0-15.0); WHITE BLOOD COUNT (AUTO) 20.7 K/uL (4.8-10.8)
[2021-03-26] MEDS ORDERED: ONDANSETRON HCL 4 MG/2 ML VIAL IVP ONE (03:15)
[2021-03-26] MEDS ORDERED: fentaNYL CITRATE/PF 100 MCG/2 ML AMP IVP ONE (03:15)
[2021-03-26 03:18] LABS: ALBUMIN 2.5 g/dL (3.4-4.8); CREATININE 0.94 mg/dL (0.55-1.30); POTASSIUM 4.9 mmol/L (3.5-5.1); TOTAL BILIRUBIN 0.1 mg/dL (0.0-1.0)
--- NOTE | 2021-03-26 03:30 | NUR ---
# 22 gauge angiocath placed to right upper arm. Use of asceptic technique. Opsite placed over site. Blood return noted. Blood for lab drawn from site. Flushed with 10 cc of normal saline. No evidence of infiltration noted. Patient tolerated well.
--- NOTE | 2021-03-26 03:38 | NUR ---
CXR at bedside.
[2021-03-26] MEDS ORDERED: VANCOMYCIN HCL 1000 MG/VIAL IV ONE (03:40)
[2021-03-26] MEDS ORDERED: PIPERACILLIN/TAZOBACTAM 3.375 GM/VIAL (ZOSYN) IV ONE (03:40)
--- NOTE | 2021-03-26 04:01 | NUR ---
Ultrasound at bedside.
[2021-03-26] MEDS ORDERED: NACL 0.9% 1,000 ML IV ONE (04:15)
--- NOTE | 2021-03-26 04:52 | NUR ---
# 16 FR Bach catheter with use of sterile technique. Immediate return of 10 cc yellow, cloudy urine noted. Bedside drainage bag placed below level of bladder. Urine sample collected and sent to lab. Pt tolerated procedure well.
--- NOTE | 2021-03-26 05:07 | NUR ---
Re-position patient and suction.
--- NOTE | 2021-03-26 06:01 | NUR ---
Patient resting quietly. No acute distress noted. Vital signs within normal range.
--- NOTE | 2021-03-26 06:21 | NUR ---
Empty urine bag- Urine out put 200 ML
--- NOTE | 2021-03-26 07:11 | NUR ---
Report given to RADHA Grover and endorse care of patient.
[2021-03-26 08:07] LABS: BILIRUBIN,URINE NEGATIVE (NEGATIVE); BLOOD, URINE 3+ (NEGATIVE); CLARITY/URINE TURBID (CLEAR); COLOR,URINE YELLOW (YELLOW); GLUCOSE,URINE NEGATIVE (NEGATIVE); KETONES,URINE NEGATIVE (NEGATIVE); LEUKOCYTE ESTERASE ,URINE NEGATIVE (NEGATIVE); NITRITE, URINE NEGATIVE (NEGATIVE); PROTEIN URINE 2+ (NEGATIVE); UROBILINOGEN,URINE 0.2 (0.2-1.0)
[2021-03-26 08:19] LABS: BACTERIA,URINE MODERATE /HPF (None Seen)
[2021-03-26 08:20] LABS: MUCUS,URINE 1+ /LPF (None Seen); URINE AMORPHOUS URATE 2+ /HPF (None Seen)
--- NOTE | 2021-03-26 09:15 | NUR ---
Patient will be admitted to care of Admitted to tele unit. Will go to room 110A. Belongings list completed. Complete and up to date summary report printed. SBAR report Karely given at bedside with opportunity for questions.
[2021-03-26 09:20] VITALS: BP_SYST 155
[2021-03-26 11:28] VITALS: BP_SYST 118
--- NOTE | 2021-03-26 12:30 | NUR ---
FEVER TEMPERATURE OF 100.5 FAHRENHEIT. COOLING MEASURES STARTED. WILL PAGE MD FOR MEDICATION.
--- NOTE | 2021-03-26 13:05 | NUR ---
CONSULTATION PAGED REASON FOR CONSULTATION:UTI,CELLULITIS WAS CONSULT CALLED?Y PERSON WHO WAS NOTIFIED:SERGE CONSULTING PHYSICIAN:IZZY JAMESON [facility] SPECIALTY:ID [facility] PHONE NUMBER:[phone] REQUESTING PHYSICIAN:CELSO HART
--- NOTE | 2021-03-26 13:11 | NUR ---
CONSULTATION PAGED REASON FOR CONSULTATION:PNA WAS CONSULT CALLED?Y PERSON WHO WAS NOTIFIED:JENNIFER CONSULTING PHYSICIAN:CAROLINA RAMON RENTAL SALESPERSON SPECIALTY:PULMONARY RENTAL SALESPERSON PHONE NUMBER:[phone] REQUESTING PHYSICIAN:SHERITA HART
[2021-03-26] MEDS: ACETAMINOPHEN 650 MG/20.3 ML UDC GT PRN (13:42)
[2021-03-26] MEDS: PIPERACILLIN/TAZO 3.375 GM in NS 50 ML IV SCH ×2 (14:05→21:37)
[2021-03-26] MEDS: VANCOMYCIN HCL 1,250 MG in NS 250 ML IV SCH (15:07)
[2021-03-26 16:00] VITALS: BP_SYST 145
--- NOTE | 2021-03-26 16:37 | NUR ---
URINE SAMPLE BROUGHT TO LAB
--- NOTE | 2021-03-26 18:55 | NUR ---
CLOSING NOTES RESTING. NO SHORTNESS OF BREATH ON 3 LITERS OF OXYGEN VIA TRACH. NO SIGN OF PAIN. TEMP AT 99.3 AT THIS TIME. COOLING MEASURES CONTINUED. WHITTEN CATHETER STILL IN PLACE. IV ACCESS INTACT. FALL AND SAFETY CHECKS DONE. WILL ENDORSE TO NIGHT NURSE
--- NOTE | 2021-03-26 19:30 | NUR ---
OPENING NOTE PATIENT IN LAYING IN BED WITH EYES OPEN. SLIGHTLY ELEVATED TEMPERATURE AT 99.6 F. COOLING MEASURES APPLIED. WHITTEN CATHETER INTACT AND DRAINING YELLOW FLUID BY GRAVITY. G-TUBE INTACT AND RUNNING FEEDING AT 50ML/HR. TRACH INTACT. LEFT HAND IF 22G INTACT. FLUSHES WELL. RIGHT UPPER ARM IV 22G INTACT SALINE LOCKED. NO SIGNS OF INFILTRATION NOTED. BED IN LOWEST AND LOCKED POSITION. EDEMA IN BILATERAL LEGS AND ARMS. WILL CONTINUE TO MONITOR.
[2021-03-26 20:00] VITALS: BP_SYST 124
--- NOTE | 2021-03-26 22:40 | NUR ---
DR. SAVAGE AT BEDSIDE MD PLACED ORDERS FOR DVT PROPHYLAXIS, HHN, AND G TUBE FLUSH.
--- NOTE | 2021-03-26 23:58 | NUR ---
TEMPERATURE TAKEN 98.2 F. NO FEVER NOTED. NO DIAPHORESIS NOTED. NO DISTRESS NOTED. SKIN WARM AND DRY. WILL CONTINUE TO MONITOR.
[2021-03-27 00:28] VITALS: BP_SYST 147
[2021-03-27] MEDS ORDERED: IPRATROPIUM/ALBUTEROL SULFATE 3 ML AMPUL.NEB (DUONEB) INH PRN (01:00)
[2021-03-27] MEDS: VANCOMYCIN HCL 1,250 MG in NS 250 ML IV SCH ×2 (01:35→15:05)
[2021-03-27] MEDS: PIPERACILLIN/TAZO 3.375 GM in NS 50 ML IV SCH ×3 (05:12→21:22)
--- NOTE | 2021-03-27 06:52 | NUR ---
Nutrition Update Yifan Scale 10 noted. Pt admitted for Cellulitis, Sepsis Diet: Jevity 1.2 at 50ml/hr, FWF 50ml Q6H via GT BMI: 45.7 kg/m2 RD to follow per nutrition care standards.
--- NOTE | 2021-03-27 07:03 | NUR ---
CLOSING NOTE PT LAYING IN BED WITH RESPIRATIONS EVEN. PT T-BAR INTACT. PT SUCTIONED TRACH THROUGHOUT THE NIGHT. WHITTEN INTACT AND DRAINING YELLOW FLUID. G-TUBE INTACT. DRESSING CLEAN AND DRY. BED IN LOWEST AND LOCKED POSITION. RIGHT UPPER ARM IV INTACT. FLUSHES WELL. LEFT HAND IV INTACT. NO SIGNS OF INFILTRATION NOTED. BED IN LOWEST AND LOCKED POSITION. SAFETY/FALL PRECAUTIONS IN PLACE. ALL NEEDS MET. WILL ENDORSE TO DAY RN.
[2021-03-27] MEDS: IPRATROPIUM/ALBUTEROL SULFATE 3 ML AMPUL.NEB (DUONEB) INH SCH ×3 (07:07→22:31)
[2021-03-27 07:13] LABS: BASOPHILS % (AUTO) 0.1 % (0.0-2.0); EOSINOPHILS % (AUTO) 0.3 % (0.0-4.0); HEMATOCRIT 27.6 % (36-48); LYMPHOCYTES # (AUTO) 2.2 K/uL (1.0-5.5); LYMPHOCYTES % (AUTO) 17.2 % (20.5-51.5); MEAN CORPUSCULAR HEMOGLOBIN 28 pg (27-31); MEAN CORPUSCULAR HGB CONC 32 % (32-36); MEAN CORPUSCULAR VOLUME 89 fL (79.0-98.0); MONOCYTES # (AUTO) 1.2 K/uL (0.0-1.0); MONOCYTES % (AUTO) 9.3 % (1.7-9.3); NEUTROPHILS # (AUTO) 9.2 K/uL (1.8-7.7); NEUTROPHILS % (AUTO) 73.1 % (40.0-70.0); PLATELET COUNT (AUTO) 295 K/uL (130-430); RED BLOOD CELL COUNT(AUTO) 3.11 MIL/uL (4.2-6.2); RED CELL DISTRIBUTION WIDTH 16.5 % (9.0-15.0); WHITE BLOOD COUNT (AUTO) 12.6 K/uL (4.8-10.8)
[2021-03-27 07:36] LABS: CALCIUM 8.4 mg/dL (8.4-11.0); CREATININE 0.98 mg/dL (0.55-1.30); POTASSIUM 4.8 mmol/L (3.5-5.1)
[2021-03-27 08:17] VITALS: BP_SYST 135
--- NOTE | 2021-03-27 08:19 | NUR ---
OPENING NOTES RESTING, NONVERBAL. ON OXYGEN SUPPORT VIA T-BAR AT 4 LITERS PER MINUTE. NO SIGN OF PAIN. SUCTIONED SECRETIONS. ORAL CARE DONE. IV ACCESS INTACT. TEMPERATURE AT 100.6 AT THIS TIME. COOLING MEASURES STARTED. WILL MEDICATE. SAFETY CHECKS DONE. WILL MONITOR. Addendum: 03/27/21 at 0849 by Tamica Quispe RN IV ACCESS ON LEFT HAND INTACT,BUT IV ON RIGHT UPPER ARM IS INFILTRATED.
[2021-03-27] MEDS: PANTOPRAZOLE SODIUM 40 MG/VIAL (PROTONIX) IVP SCH (08:47)
[2021-03-27] MEDS: ACETAMINOPHEN 650 MG/20.3 ML UDC GT PRN (08:48)
[2021-03-27] MEDS: ENOXAPARIN SODIUM 30 MG/0.3 ML SYRINGE SUBCUT SCH (08:50)
[2021-03-27 09:00] LABS: HEMOGLOBIN 8.8 g/dL (12.0-16.0)
--- NOTE | 2021-03-27 11:30 | NUR ---
ROUNDS ASLEEP AT THIS TIME. THIN, CLEAR SECRETIONS FROM THE TRACH AND MOUTH SUCTIONED. REPOSITIONED. SAFETY CHECKS DONE. WILL MONITOR.
[2021-03-27 12:35] VITALS: BP_SYST 151
--- NOTE | 2021-03-27 15:00 | NUR ---
IV INFILTRATION NOTICED THAT IV ON THE LEFT HAND WAS INFILTRATED. ATTEMPTED IV INSERTION BUT WAS UNSUCCESSFUL.WILL TRY AGAIN.
--- NOTE | 2021-03-27 16:20 | NUR ---
MD KIRK TALKED TO DR. JOHN DECKER RECEIVED ORDERS FOR PICC LINE INSERTION. ALSO REPORTED TO MD THAT PATIENT'S SWELLING SEEMED WORSE. ORDERS RECEIVED.
[2021-03-27] MEDS ORDERED: FUROSEMIDE 40 MG/4 ML VIAL IVP ONE (16:30)
[2021-03-27 16:48] VITALS: BP_SYST 147
--- NOTE | 2021-03-27 18:53 | NUR ---
CLOSING NOTES RESTING. NO SHORTNESS OF BREATH ON 3 LITERS OF OXYGEN VIA TRACH. NO SIGN OF PAIN. WHITTEN CATHETER STILL IN PLACE. IV ACCESS INTACT. FALL AND SAFETY CHECKS DONE. WILL ENDORSE TO NIGHT NURSE
--- NOTE | 2021-03-27 19:50 | NUR ---
OPENING NOTE RECEIVED REPORT FROM DAY RN. PT IN LAYING IN BED WITH RESPIRATIONS EVEN AND UNLABORED. AUDIBLE GURGLING COMING FROM TRACH. PT SUCTIONED WHICH IMPROVED BREATH SOUNDS. PT TOLERATED WELL. MONIQUE IV 22G DRESSING CLEAN, DRY AND INTACT. FLUSHES WELL. GENERALIZED EDEMA IN ALL EXTREMITIES. HOB ELEVATED. T-BAR IN PLACE WITH 4L O2. WHITTEN INTACT AND DRAINING YELLOW FLUID. G-TUBE DRESSING CLEAN AND DRY RUNNING FEEDING. RESIDUAL 15ML. FEEDING CONTINUED. PILLOW SUPPORT USED UNDER FEET AND ARMS. SAFETY PRECAUTIONS IN PLACE. CALL LIGHT WITHIN REACH. BED IN LOWEST AND LOCKED POSITION. WILL CONTINUE TO MONITOR.
[2021-03-27 20:00] VITALS: BP_SYST 158
--- NOTE | 2021-03-27 20:45 | NUR ---
PICC PLACED REYNA, LICENSED MEDICAL STAFF, HERE TO PLACE PICC FOR PT. PICC PLACED IN MONIQUE. 4 INCHES LEFT OUT. DRESSING CLEAN AND DRY. PT TOLERATED WELL. AWAITING X-RAY RESULTS FOR PLACEMENT.
[2021-03-28 01:34] VITALS: BP_SYST 151
[2021-03-28] MEDS: VANCOMYCIN HCL 1,250 MG in NS 250 ML IV SCH ×2 (02:21→13:20)
[2021-03-28] MEDS: PIPERACILLIN/TAZO 3.375 GM in NS 50 ML IV SCH ×3 (05:15→21:11)
[2021-03-28 06:56] LABS: BASOPHILS % (AUTO) 0.3 % (0.0-2.0); EOSINOPHILS # (AUTO) 0.2 K/uL (0.0-0.4); EOSINOPHILS % (AUTO) 1.6 % (0.0-4.0); HEMATOCRIT 29.8 % (36-48); HEMOGLOBIN 9.6 g/dL (12.0-16.0); LYMPHOCYTES # (AUTO) 2.7 K/uL (1.0-5.5); LYMPHOCYTES % (AUTO) 20.9 % (20.5-51.5); MEAN CORPUSCULAR HEMOGLOBIN 29 pg (27-31); MEAN CORPUSCULAR HGB CONC 32 % (32-36); MEAN CORPUSCULAR VOLUME 89 fL (79.0-98.0); MONOCYTES # (AUTO) 1.3 K/uL (0.0-1.0); NEUTROPHILS # (AUTO) 8.6 K/uL (1.8-7.7); NEUTROPHILS % (AUTO) 67.2 % (40.0-70.0); PLATELET COUNT (AUTO) 343 K/uL (130-430); RED BLOOD CELL COUNT(AUTO) 3.34 MIL/uL (4.2-6.2); RED CELL DISTRIBUTION WIDTH 15.9 % (9.0-15.0); WHITE BLOOD COUNT (AUTO) 12.7 K/uL (4.8-10.8)
--- NOTE | 2021-03-28 07:30 | NUR ---
Opening note Patient is laying in bed a&Ox0 nonverbal, awakens to light stimuli. No signs or symptoms of respiratory distress, tolerating 4L on the T-Bar. IV is infusing, no signs or symptoms of infiltration, PICC confirmed in place. Body language does not express pain or discomfort. Unable to educate on plan of care due to cognitive status. Bed is in lowest position, fall and aspiration precautions are in place. Will continue to monitor.
[2021-03-28 07:40] LABS: ALBUMIN 2.1 g/dL (3.4-4.8); CALCIUM 8.8 mg/dL (8.4-11.0); CREATININE 1.09 mg/dL (0.55-1.30); POTASSIUM 4.4 mmol/L (3.5-5.1); TOTAL BILIRUBIN 0.3 mg/dL (0.0-1.0)
[2021-03-28] MEDS: IPRATROPIUM/ALBUTEROL SULFATE 3 ML AMPUL.NEB (DUONEB) INH SCH ×3 (07:45→19:26)
[2021-03-28 08:00] VITALS: BP_SYST 156
[2021-03-28] MEDS: FUROSEMIDE 40 MG/4 ML VIAL IVP SCH (08:58)
[2021-03-28] MEDS: PANTOPRAZOLE SODIUM 40 MG/VIAL (PROTONIX) IVP SCH (08:58)
[2021-03-28] MEDS: ENOXAPARIN SODIUM 30 MG/0.3 ML SYRINGE SUBCUT SCH (09:00)
[2021-03-28 12:46] VITALS: BP_SYST 158
--- NOTE | 2021-03-28 13:25 | NUR ---
Dietitian Recommendations *Recommend: continue Jevity 1.2 at 50ml/hr, FWF 50ml Q6H via GT per MD Provides: 1440 kcal, 67gm protein and 1168ml Meets: 82% of upper end of estimated calorie needs and 89% of lower end of estimated protein needs. Please see Nutritional Assessment for details. CORRECTION< RD
--- NOTE | 2021-03-28 13:30 | NUR ---
Critical lab Pharmacy made aware of elevated vanco trough.
[2021-03-28 15:25] VITALS: BP_SYST 155
--- NOTE | 2021-03-28 17:33 | NUR ---
RN note Patient is stable resting in bed, drainage from trach is pink and frothy, no changes identified.
--- NOTE | 2021-03-28 18:28 | NUR ---
Opening note Patient is laying in bed a&Ox0 nonverbal, awakens to light stimuli. No signs or symptoms of respiratory distress, tolerating 4L on the T-Bar. PICC is infusing, no signs or symptoms of infiltration. Body language does not express pain or discomfort. All needs were met. Bed is in lowest position, fall and aspiration precautions are in place. Will endorse report to shift commander.
[2021-03-28 20:00] VITALS: BP_SYST 148
--- NOTE | 2021-03-28 20:20 | NUR ---
Opening notes Pt awake, eyes open, non verbal. No s/s distress noted. Pt satting at 95-97% on 5L via T-Bar. Pt temp 99.6 axillary, cooling measures maintained. RT suctioned pt noted with small pink tinged/beige thick secretions. HOB maintained elevated. GT feeding Jevity 1.2 running at 50cc/hr. No residual noted. L.UA PICC line double lumen with good blood return noted. Bach catheter draining to gravity with tamika urine. Bed low, locked, siderails up x4, alarm on. Pt repositioned with pillow support. To monitor.
--- NOTE | 2021-03-28 22:20 | NUR ---
rounds Dr. Rigo sharma.
[2021-03-29] VITALS (7 sets, daily range): BP systolic 120–132
[2021-03-29] MEDS: IPRATROPIUM/ALBUTEROL SULFATE 3 ML AMPUL.NEB (DUONEB) INH SCH ×4 (01:30→19:47)
--- NOTE | 2021-03-29 02:40 | NUR ---
Rounds Pt asleep, no s/s distress noted. O2 sat 95% on 5L T-Bar. Will continue to monitor.
--- NOTE | 2021-03-29 03:15 | NUR ---
Oral care/suction Oral care/suction provided thick beige secretion. Pt tolerated well O2 sat 95% on T-Bar 5L. To monitor.
[2021-03-29] MEDS: PIPERACILLIN/TAZO 3.375 GM in NS 50 ML IV SCH ×3 (05:39→21:31)
--- NOTE | 2021-03-29 08:00 | NUR ---
am notes pt in bed. non verbal. on trach with t bar 5l saturation 98%. res even and unlabored. not in acute distress. amparo piccline patent. with good blood return. g tube feeding continue jevity 1.2 50 ml/hr. no residual noted.hob elevated. quintana draining yellow color urine. fall/aspiration/seizure precautions in place.repositioned with pillow.gen edema noted. will continue to monitor
[2021-03-29] MEDS: PANTOPRAZOLE SODIUM 40 MG/VIAL (PROTONIX) IVP SCH (09:56)
[2021-03-29] MEDS: FUROSEMIDE 40 MG/4 ML VIAL IVP SCH (09:58)
[2021-03-29] MEDS: ENOXAPARIN SODIUM 30 MG/0.3 ML SYRINGE SUBCUT SCH (10:11)
--- NOTE | 2021-03-29 12:30 | NUR ---
ROUNDS PT STABLE NOTIN ACUTE DISTRESS. PT CLEANED AND REPOSITIONED. HOB ELEVATED . TRACHEAL SUCTION DONE.THICK SECREATIONS NOTED. G TUBE FEEDING CONTINUE ORDERED. PT TOLERATING WELL. WILL CONTINUE TO MONITOR
--- NOTE | 2021-03-29 15:00 | NUR ---
MD ROUNDS SEEN BY DR TIJERINA.
--- NOTE | 2021-03-29 18:42 | NUR ---
closing notes pt stable.. non verbal. on trach with t bar 5l saturation 95%.res even and unlabored. not in acute distress. amparo piccline patent. with good blood return. g tube feeding continue jevity 1.2 50 ml/hr. no residual noted.hob elevated. quintana draining yellow color urine. fall/aspiration/seizure precautions in place.repositioned with pillow. will endorse to cook night
[2021-03-30 00:30] VITALS: BP_SYST 122
[2021-03-30] MEDS: PIPERACILLIN/TAZO 3.375 GM in NS 50 ML IV SCH ×3 (06:25→22:41)
[2021-03-30] MEDS: IPRATROPIUM/ALBUTEROL SULFATE 3 ML AMPUL.NEB (DUONEB) INH SCH ×3 (07:35→19:41)
--- NOTE | 2021-03-30 07:50 | NUR ---
Opening note Patient is laying in bed A&O x0 nonverbal, body language expresses distress, provided tracheal suction, temperature is elevated, provided prn medication and ice packs, will reassess. IV is infusing, no signs or symptoms of infiltration. Respiratory therapist provided breathing treatment. Unable to educate plan of care due to cognitive status. Bed is in lowest position, contact, seizure, fall and aspiration precautions are in place. Will continue to monitor.
[2021-03-30] MEDS: ACETAMINOPHEN 650 MG/20.3 ML UDC GT PRN (07:57)
[2021-03-30] MEDS: PANTOPRAZOLE SODIUM 40 MG/VIAL (PROTONIX) IVP SCH (07:57)
[2021-03-30] MEDS: FUROSEMIDE 40 MG/4 ML VIAL IVP SCH (07:58)
[2021-03-30 08:00] VITALS: BP_SYST 143
[2021-03-30] MEDS: ENOXAPARIN SODIUM 30 MG/0.3 ML SYRINGE SUBCUT SCH (08:08)
[2021-03-30 08:40] LABS: BASOPHILS % (AUTO) 0.3 % (0.0-2.0); EOSINOPHILS # (AUTO) 0.3 K/uL (0.0-0.4); EOSINOPHILS % (AUTO) 1.8 % (0.0-4.0); HEMATOCRIT 29.1 % (36-48); HEMOGLOBIN 9.3 g/dL (12.0-16.0); LYMPHOCYTES # (AUTO) 2.8 K/uL (1.0-5.5); LYMPHOCYTES % (AUTO) 15.9 % (20.5-51.5); MEAN CORPUSCULAR HEMOGLOBIN 28 pg (27-31); MEAN CORPUSCULAR HGB CONC 32 % (32-36); MEAN CORPUSCULAR VOLUME 89 fL (79.0-98.0); MONOCYTES # (AUTO) 1.8 K/uL (0.0-1.0); MONOCYTES % (AUTO) 10.4 % (1.7-9.3); NEUTROPHILS # (AUTO) 12.5 K/uL (1.8-7.7); NEUTROPHILS % (AUTO) 71.6 % (40.0-70.0); PLATELET COUNT (AUTO) 405 K/uL (130-430); RED BLOOD CELL COUNT(AUTO) 3.27 MIL/uL (4.2-6.2); WHITE BLOOD COUNT (AUTO) 17.5 K/uL (4.8-10.8)
[2021-03-30 10:16] LABS: CALCIUM 8.5 mg/dL (8.4-11.0); CREATININE 1.14 mg/dL (0.55-1.30); POTASSIUM 4.6 mmol/L (3.5-5.1); VANCOMYCIN,RANDOM 9.2 ug/mL
--- NOTE | 2021-03-30 11:30 | NUR ---
RN note Reassessed haresh lynn, temp is now 99.1F . Will continue to monitor and place ice packs.
[2021-03-30 11:36] VITALS: BP_SYST 128
[2021-03-30] MEDS ORDERED: ACETAMINOPHEN 650 MG/20.3 ML UDC GT PRN (12:46)
--- NOTE | 2021-03-30 12:50 | NUR ---
MD rounds BOOM OPERATOR Silvina made aware of patients elevated temperature. Changes made to patient medication.
[2021-03-30] MEDS: VANCOMYCIN HCL 1 GM/NS PREMIX 250 ML IV SCH (15:11)
[2021-03-30 16:09] VITALS: BP_SYST 122
--- NOTE | 2021-03-30 18:31 | NUR ---
Closing note Patient is resting in bed A&O x0 nonverbal, body language does not express distress, IV is patent no signs or symptoms of infiltration. Respiratory therapist provided breathing treatment. Unable to educate plan of care due to cognitive status. Bed is in lowest position, contact, seizure, fall and aspiration precautions are in place. Will endorse report to overnight babysitter.
[2021-03-30 19:00] VITALS: BP_SYST 126
[2021-03-30 20:00] VITALS: BP_SYST 126
[2021-03-30] MEDS: LACOSAMIDE 100 MG TABLET GT SCH (21:00)
[2021-03-30] MEDS: levETIRAcetam 500 MG TABLET GT SCH (22:39)
[2021-03-30] MEDS: DOCUSATE SODIUM 100 MG/10 ML UDC GT SCH (22:40)
[2021-03-30] MEDS: OXcarbazepine 150 MG TABLET(TRILEPTAL) GT SCH (22:40)
[2021-03-30] MEDS: ATORVASTATIN 10 MG TABLET GT SCH (22:40)
[2021-03-31 00:31] VITALS: BP_SYST 139
[2021-03-31] MEDS: PIPERACILLIN/TAZO 3.375 GM in NS 50 ML IV SCH ×4 (06:00→21:36)
[2021-03-31 06:51] LABS: BASOPHILS % (AUTO) 0.3 % (0.0-2.0); EOSINOPHILS # (AUTO) 0.4 K/uL (0.0-0.4); EOSINOPHILS % (AUTO) 2.7 % (0.0-4.0); HEMATOCRIT 26.8 % (36-48); HEMOGLOBIN 8.6 g/dL (12.0-16.0); LYMPHOCYTES # (AUTO) 2.7 K/uL (1.0-5.5); LYMPHOCYTES % (AUTO) 19.3 % (20.5-51.5); MEAN CORPUSCULAR HEMOGLOBIN 29 pg (27-31); MEAN CORPUSCULAR HGB CONC 32 % (32-36); MEAN CORPUSCULAR VOLUME 89 fL (79.0-98.0); MONOCYTES # (AUTO) 1.4 K/uL (0.0-1.0); MONOCYTES % (AUTO) 10.2 % (1.7-9.3); NEUTROPHILS # (AUTO) 9.5 K/uL (1.8-7.7); NEUTROPHILS % (AUTO) 67.5 % (40.0-70.0); PLATELET COUNT (AUTO) 401 K/uL (130-430); RED BLOOD CELL COUNT(AUTO) 3.02 MIL/uL (4.2-6.2); RED CELL DISTRIBUTION WIDTH 16.3 % (9.0-15.0); WHITE BLOOD COUNT (AUTO) 14.1 K/uL (4.8-10.8)
[2021-03-31 07:15] LABS: CALCIUM 8.6 mg/dL (8.4-11.0); CREATININE 1.18 mg/dL (0.55-1.30); POTASSIUM 4.3 mmol/L (3.5-5.1)
--- NOTE | 2021-03-31 07:20 | NUR ---
received pt from night nurse, pt is has a lot of secretion from her mouth and tache, pt suctioned.
[2021-03-31] MEDS: IPRATROPIUM/ALBUTEROL SULFATE 3 ML AMPUL.NEB (DUONEB) INH SCH ×3 (07:25→19:25)
[2021-03-31 07:43] VITALS: BP_SYST 146
[2021-03-31] MEDS ORDERED: FUROSEMIDE 40 MG TABLET GT SCH (09:00)
[2021-03-31] MEDS: levETIRAcetam 500 MG TABLET GT SCH ×2 (09:34→21:37)
[2021-03-31] MEDS: OXcarbazepine 150 MG TABLET(TRILEPTAL) GT SCH ×2 (09:34→21:37)
[2021-03-31] MEDS: amLODIPine BESYLATE 5 MG TABLET GT SCH (09:35)
[2021-03-31] MEDS: FUROSEMIDE 40 MG/4 ML VIAL IVP SCH (09:36)
[2021-03-31] MEDS: lisinopriL 5 MG TABLET GT SCH (09:36)
[2021-03-31] MEDS: PANTOPRAZOLE SODIUM 40 MG/VIAL (PROTONIX) IVP SCH (09:37)
[2021-03-31] MEDS: DOCUSATE SODIUM 100 MG/10 ML UDC GT SCH ×2 (09:37→21:37)
[2021-03-31] MEDS: ENOXAPARIN SODIUM 30 MG/0.3 ML SYRINGE SUBCUT SCH (09:38)
[2021-03-31] MEDS: LACOSAMIDE 100 MG TABLET GT SCH ×2 (09:46→21:37)
[2021-03-31] MEDS: ASCORBIC ACID 500 MG TABLET GT SCH (09:46)
[2021-03-31 11:26] VITALS: BP_SYST 120
--- NOTE | 2021-03-31 12:45 | NUR ---
PT'S FAMILY CALLED AND UPDATED WITH PT'S STATUS AND CONDITION.
--- NOTE | 2021-03-31 13:14 | NUR ---
ORAL AND TRACH SUCTION DONE. TURNED AND REPOSITIONED WITH OLIVA HERNANDEZ PT HAD A BM. CLEANSED.
[2021-03-31] MEDS: VANCOMYCIN HCL 1 GM/NS PREMIX 250 ML IV SCH (13:54)
[2021-03-31 15:32] VITALS: BP_SYST 123
--- NOTE | 2021-03-31 15:45 | NUR ---
Nutrition F/U RD reviewed pt's current EMR including diet Hx, physician notes, nursing notes, pertinent labs/meds/procedures, care trends, and care activity. Short note d/t lack of time. Current Diet Order/Nutrition Support: Jevity 1.2 at 50 ml/hr, Free Water Flush: 50 ml Q6H via GT x4 days RD rounded to pt's room and witnessed TF infusing as per physician order. Pt is under contact isolation d/t +E. coli in urine per EMR review. Bedscale wt taken: 203# -- wt down 5# from previously documented wt of 208# (03/28). RN stated that pt has been tolerating diet well, however, has been having diarrhea. Per EMR review, TF Rate: 50 ml 03/30; GRV: 5 ml 03/30; TF Intakes: 600 ml 03/29; last BM x1 03/30. TF prescription continues adequate/appropriate, however, pt may benefit from Banatrol TID to aid in bulking stool. Pt continues at high nutritional risk. RD to F/U within 2-3 days.
--- NOTE | 2021-03-31 18:49 | NUR ---
ORAL CARE DONE, SUCTIONED ORALLY AND VIA TRACHE. PT HAS BEEN SUCTIONED PRN.
[2021-03-31 21:06] VITALS: BP_SYST 126
[2021-03-31] MEDS: ATORVASTATIN 10 MG TABLET GT SCH (21:37)
[2021-04-01 01:25] VITALS: BP_SYST 119
[2021-04-01] MEDS: PIPERACILLIN/TAZO 3.375 GM in NS 50 ML IV SCH ×3 (05:34→21:32)
[2021-04-01] MEDS: IPRATROPIUM/ALBUTEROL SULFATE 3 ML AMPUL.NEB (DUONEB) INH SCH ×3 (07:11→20:06)
[2021-04-01 08:26] LABS: BASOPHILS % (AUTO) 0.4 % (0.0-2.0); EOSINOPHILS # (AUTO) 0.5 K/uL (0.0-0.4); EOSINOPHILS % (AUTO) 4.1 % (0.0-4.0); HEMATOCRIT 25.7 % (36-48); HEMOGLOBIN 8.2 g/dL (12.0-16.0); LYMPHOCYTES # (AUTO) 2.5 K/uL (1.0-5.5); LYMPHOCYTES % (AUTO) 21.2 % (20.5-51.5); MEAN CORPUSCULAR HEMOGLOBIN 29 pg (27-31); MEAN CORPUSCULAR HGB CONC 32 % (32-36); MEAN CORPUSCULAR VOLUME 91 fL (79.0-98.0); MONOCYTES # (AUTO) 1.2 K/uL (0.0-1.0); NEUTROPHILS # (AUTO) 7.6 K/uL (1.8-7.7); NEUTROPHILS % (AUTO) 64.3 % (40.0-70.0); PLATELET COUNT (AUTO) 391 K/uL (130-430); RED BLOOD CELL COUNT(AUTO) 2.81 MIL/uL (4.2-6.2); RED CELL DISTRIBUTION WIDTH 16.7 % (9.0-15.0); WHITE BLOOD COUNT (AUTO) 11.8 K/uL (4.8-10.8)
[2021-04-01 08:30] VITALS: BP_SYST 118
[2021-04-01 10:09] VITALS: BP_SYST 118
[2021-04-01] MEDS: DOCUSATE SODIUM 100 MG/10 ML UDC GT SCH ×2 (10:12→21:31)
[2021-04-01] MEDS: OXcarbazepine 150 MG TABLET(TRILEPTAL) GT SCH ×2 (10:13→21:31)
[2021-04-01] MEDS: amLODIPine BESYLATE 5 MG TABLET GT SCH (10:13)
[2021-04-01] MEDS: levETIRAcetam 500 MG TABLET GT SCH ×2 (10:14→21:31)
[2021-04-01] MEDS: LACOSAMIDE 100 MG TABLET GT SCH ×2 (10:15→21:46)
[2021-04-01] MEDS: lisinopriL 5 MG TABLET GT SCH (10:15)
[2021-04-01] MEDS: ASCORBIC ACID 500 MG TABLET GT SCH (10:16)
[2021-04-01] MEDS: ENOXAPARIN SODIUM 30 MG/0.3 ML SYRINGE SUBCUT SCH (10:17)
[2021-04-01] MEDS: FUROSEMIDE 40 MG/4 ML VIAL IVP SCH (10:17)
[2021-04-01] MEDS: PANTOPRAZOLE SODIUM 40 MG/VIAL (PROTONIX) IVP SCH (10:17)
[2021-04-01 11:29] LABS: CALCIUM 8.5 mg/dL (8.4-11.0); CREATININE 1.19 mg/dL (0.55-1.30); POTASSIUM 4.3 mmol/L (3.5-5.1)
[2021-04-01 11:41] VITALS: BP_SYST 144
[2021-04-01 15:28] VITALS: BP_SYST 129
[2021-04-01] MEDS: ATORVASTATIN 10 MG TABLET GT SCH (21:31)
[2021-04-01 21:46] VITALS: BP_SYST 121
[2021-04-02 00:24] VITALS: BP_SYST 91
[2021-04-02] MEDS: IPRATROPIUM/ALBUTEROL SULFATE 3 ML AMPUL.NEB (DUONEB) INH SCH ×4 (01:32→19:30)
--- NOTE | 2021-04-02 03:08 | NUR ---
Received bedside report from rn. Pt in bed resting. suction provided with rt. bed rails up x2. tube feeding patent. pt has lex picc. call light within reach. bed locked in lowest position. sz precautions in place. bed alarm on. will continue to monitor.
--- NOTE | 2021-04-02 03:10 | NUR ---
tube feeding changed. no residual volume. pt tolerating well.
--- NOTE | 2021-04-02 06:53 | NUR ---
pt slept through night. no suctioning required. call light within reach. bed locked in lowest position. bed alarm on. will continue to monitor.
[2021-04-02 08:45] VITALS: BP_SYST 141
[2021-04-02] MEDS: DOCUSATE SODIUM 100 MG/10 ML UDC GT SCH ×2 (09:58→21:41)
[2021-04-02] MEDS: ASCORBIC ACID 500 MG TABLET GT SCH (09:59)
[2021-04-02] MEDS: amLODIPine BESYLATE 5 MG TABLET GT SCH (09:59)
[2021-04-02] MEDS: lisinopriL 5 MG TABLET GT SCH (09:59)
[2021-04-02] MEDS: levETIRAcetam 500 MG TABLET GT SCH ×2 (10:00→21:41)
[2021-04-02] MEDS: PANTOPRAZOLE SODIUM 40 MG/VIAL (PROTONIX) IVP SCH (10:00)
[2021-04-02] MEDS: OXcarbazepine 150 MG TABLET(TRILEPTAL) GT SCH ×2 (10:00→21:41)
[2021-04-02] MEDS: FUROSEMIDE 40 MG/4 ML VIAL IVP SCH (10:01)
[2021-04-02] MEDS: ENOXAPARIN SODIUM 30 MG/0.3 ML SYRINGE SUBCUT SCH (10:03)
[2021-04-02] MEDS: LACOSAMIDE 100 MG TABLET GT SCH ×2 (10:04→21:41)
[2021-04-02] MEDS: PIPERACILLIN/TAZO 3.375 GM in NS 50 ML IV SCH ×2 (10:06→17:49)
[2021-04-02 11:34] VITALS: BP_SYST 139
[2021-04-02] MEDS ORDERED: VANCOMYCIN HCL 1,000 MG in NS 250 ML IV SCH (14:00)
[2021-04-02 15:40] VITALS: BP_SYST 124
--- NOTE | 2021-04-02 17:17 | NUR ---
ID DR TIJERINA HERE. PATIENT IS OKAY TO [id number] BACK TO [facility]
--- NOTE | 2021-04-02 17:45 | NUR ---
[facility] S/W BRITT FROM [facility]. NO AVAILABLE BED FOR PATIENT TONIGHT. CM TO FOLLOW UP IN THE MORNING
--- NOTE | 2021-04-02 19:21 | NUR ---
MED PASS PATIENT DUE MEDICATIONS GIVEN. VITAL SIGNS STABLE. TOLERATING TBAR @ 4L.
[2021-04-02 21:39] VITALS: BP_SYST 137
[2021-04-02] MEDS: ATORVASTATIN 10 MG TABLET GT SCH (21:41)
[2021-04-03] VITALS (7 sets, daily range): BP systolic 142–163
[2021-04-03] MEDS: PIPERACILLIN/TAZO 3.375 GM in NS 50 ML IV SCH ×3 (00:29→18:31)
--- NOTE | 2021-04-03 00:29 | NUR ---
ATB PATIENT DUE ANTIBIOTIC INFUSING. MONIQUE PICC LINE INTACT.
--- NOTE | 2021-04-03 03:17 | NUR ---
ROUNDS PATIENT RESTING IN BED. NO DISTRESS NOTED. 02 SAT 96%
[2021-04-03 06:25] LABS: BASOPHILS % (AUTO) 0.4 % (0.0-2.0); EOSINOPHILS # (AUTO) 0.4 K/uL (0.0-0.4); EOSINOPHILS % (AUTO) 3.4 % (0.0-4.0); HEMATOCRIT 25.7 % (36-48); LYMPHOCYTES # (AUTO) 2.2 K/uL (1.0-5.5); LYMPHOCYTES % (AUTO) 19.1 % (20.5-51.5); MEAN CORPUSCULAR HEMOGLOBIN 28 pg (27-31); MEAN CORPUSCULAR HGB CONC 31 % (32-36); MEAN CORPUSCULAR VOLUME 90 fL (79.0-98.0); NEUTROPHILS # (AUTO) 7.9 K/uL (1.8-7.7); NEUTROPHILS % (AUTO) 68.1 % (40.0-70.0); PLATELET COUNT (AUTO) 453 K/uL (130-430); RED BLOOD CELL COUNT(AUTO) 2.86 MIL/uL (4.2-6.2); RED CELL DISTRIBUTION WIDTH 16.5 % (9.0-15.0); WHITE BLOOD COUNT (AUTO) 11.6 K/uL (4.8-10.8)
[2021-04-03 06:30] LABS: CALCIUM 8.8 mg/dL (8.4-11.0); CREATININE 1.27 mg/dL (0.55-1.30); POTASSIUM 4.6 mmol/L (3.5-5.1)
--- NOTE | 2021-04-03 06:38 | NUR ---
CLOSING NOTES PICC LINE DRESSING CHANGED. GT FEEDING TOLERATED NO RESIDUAL THROUGHOUT SHIFT. TBAR @4L TOLERATED. 02 SAT 95-98%.
[2021-04-03] MEDS: IPRATROPIUM/ALBUTEROL SULFATE 3 ML AMPUL.NEB (DUONEB) INH SCH ×4 (07:34→21:11)
[2021-04-03] MEDS: PANTOPRAZOLE SODIUM 40 MG/VIAL (PROTONIX) IVP SCH (08:19)
[2021-04-03] MEDS: OXcarbazepine 150 MG TABLET(TRILEPTAL) GT SCH (08:20)
[2021-04-03] MEDS: FUROSEMIDE 40 MG/4 ML VIAL IVP SCH (08:20)
[2021-04-03] MEDS: levETIRAcetam 500 MG TABLET GT SCH (08:21)
[2021-04-03] MEDS: ASCORBIC ACID 500 MG TABLET GT SCH (08:21)
[2021-04-03] MEDS: amLODIPine BESYLATE 5 MG TABLET GT SCH (08:21)
[2021-04-03] MEDS: DOCUSATE SODIUM 100 MG/10 ML UDC GT SCH (08:21)
[2021-04-03] MEDS: lisinopriL 5 MG TABLET GT SCH (08:21)
[2021-04-03] MEDS: LACOSAMIDE 100 MG TABLET GT SCH (08:21)
[2021-04-03] MEDS: ENOXAPARIN SODIUM 30 MG/0.3 ML SYRINGE SUBCUT SCH (08:22)
--- NOTE | 2021-04-03 14:18 | NUR ---
CM note: faxed the referral to [facility] yesterday and received bed assignment from Shital/admitting for isolation/ESBL -Urine room 35, RN to report # . >>Booked with [facility] for fish [facility] picker at [phone] pm. RADHA Moreno made aware, DC package placed in nursing unit. Addendum: 04/03/21 at 1602 by Adri Malik RN Correction: confirmed with Jacky Becerra for ALS/RT for fish bait picker at 1800. The pt is on TBAR , no vent , concurred with Tiffanie GARCIA .
--- NOTE | 2021-04-03 14:56 | NUR ---
Paged Dr. Chandler Herbert for clearance for discharge and dosing of antibiotics
--- NOTE | 2021-04-03 16:15 | NUR ---
Report given to josh Juarez including isolation , antibiotics , mother XiongAmmy agreed for transfer, crab picker time arranged by nurse case management for 6 pm. VIEW POINT
--- NOTE | 2021-04-03 19:30 | NUR ---
OPENING NOTES PATIENT FOR D/C BACK TO [facility]WAITING FOR AMBULANCE. 02 SAT 100% ON TBAR 4L.
--- NOTE | 2021-04-03 20:35 | NUR ---
DISCHARGED PATIENT DISCHARGED TO [facility] IN STABLE CONDITION. ACCOMPANIED BY AMBULANCE ATTENDANTS. VITAL SIGNS STABLE.
== END 2021-04-03 20:20 | DRG 871 ==
LOC: SED 02:10 → STU 06:58 → SMU 03-31 15:42
PROVIDERS: ADMIT Internal Medicine; ATTEND Internal Medicine
DX: A41.9 Sepsis, unspecified organism (principal); E43 Unspecified severe protein-calorie malnutrition; J18.9 Pneumonia, unspecified organism; R53.2 Functional quadriplegia; L03.116 Cellulitis of left lower limb; L03.115 Cellulitis of right lower limb; N39.0 Urinary tract infection, site not specified; J96.10 Chronic respiratory failure, unspecified whether with hypoxia or hypercapnia; J44.0 Chronic obstructive pulmonary disease with (acute) lower respiratory infection; Z99.11 Dependence on respirator [ventilator] status; K21.9 Gastro-esophageal reflux disease without esophagitis; Z20.822 Contact with and (suspected) exposure to COVID-19; I10 Essential (primary) hypertension; G40.909 Epilepsy, unspecified, not intractable, without status epilepticus; F79 Unspecified intellectual disabilities; E66.9 Obesity, unspecified; D49.6 Neoplasm of unspecified behavior of brain; Z79.899 Other long term (current) drug therapy; Z79.1 Long term (current) use of non-steroidal anti-inflammatories (NSAID); Z68.38 Body mass index [BMI] 38.0-38.9, adult; Z93.0 Tracheostomy status; Z93.1 Gastrostomy status
CPT/HCPCS: 36415; 71045; 80048; 80053; 80202; 81000; 85025; 87040-TC; 87081; 87086; 93970; 94640; 94760; 96361; 96365; 96367; 96375; 99285; C9113; G0378; J1650; J1940; J2405; J2543; J3010; J3370; J7050